=== PATIENT | male | born 1995 | race Two or more races ===

== ENCOUNTER 2019-01-20 21:23 | Emergency (ER) | payer SELFPAY ==
[2019-01-20 21:49] VITALS: RESP 20; TEMP 97; O2SAT 97
[2019-01-20] MEDS ORDERED: DIAZEPAM 5 MG TAB PO ONE (22:10)
[2019-01-20] MEDS ORDERED: KETOROLAC TROMETHAMINE 30 MG/ML SOL IM ONE (22:10)
[2019-01-20 23:41] VITALS: BP 140/85; PULSE 89
== END 2019-01-20 23:20 | disposition home or self-care (01) | DRG 563 ==
LOC: ED 21:23
DX: S39.012A Strain of muscle, fascia and tendon of lower back, initial encounter (principal)
CPT/HCPCS: 96372; 99282; 99283; J1885; A9270-GY